=== PATIENT | female | born 1975 | race Caucasian/White ===

== ENCOUNTER 2016-09-22 19:56 | Emergency (ER) | payer OTHER | END 2016-09-22 21:48 | disposition home or self-care (01) | LOC: ER 19:56 | DX: G43.909 Migraine, unspecified, not intractable, without status migrainosus (principal); G50.0 Trigeminal neuralgia; I10 Essential (primary) hypertension; Z88.8 Allergy status to other drugs, medicaments and biological substances | CPT/HCPCS: 96372; J2550 ==